=== PATIENT | male | born 1960 | race Caucasian/White ===

== ENCOUNTER → 2023-10-07 10:18 | Outpatient (REF) | payer OTHER, SELFPAY ==
[2023-10-07 15:39] LABS: Blood Urea Nitrogen 16 mg/dl (9-20); Calcium 9.7 mg/dl (8.4-10.2); Carbon Dioxide 27 mmol/L (22-30); Chloride 101 mmol/L (98-107); Glucose 104 mg/dl (70-99); Potassium 4.5 mmol/L (3.5-5.1); Sodium 137 mmol/L (135-145); eGFR > 60.00
== END ==
LOC: HWLAB 10:18
PROVIDERS: ATTENDING PHYSICIAN Orthopaedic Surgery; FAMILY PHYSICIAN Family Medicine
DX: Z01.818 Encounter for other preprocedural examination (principal)
CPT/HCPCS: 36415; 80048; 93005

== ENCOUNTER → 2024-01-07 11:07 | Outpatient (REF) | payer OTHER, SELFPAY | LOC: HWRAD 11:07 | PROVIDERS: ATTENDING PHYSICIAN Physician Assistant Medical | DX: M54.41 Lumbago with sciatica, right side (principal) | CPT/HCPCS: 72110 ==